=== PATIENT | female | born 1970 | race Caucasian/White ===

== ENCOUNTER 2017-09-14 14:12 | Emergency (ER) | payer SELFPAY ==
[2017-09-14] MEDS ORDERED: ONDANSETRON HCL INJ/PF 4 MG/2 ML SDV IV ONE (15:35)
[2017-09-14] MEDS ORDERED: KETOROLAC TROMETHAMINE INJ/PF 30 MG/1 ML SDV IV ONE (15:35)
--- NOTE | 2017-09-14 15:46 | ER Document Report ---
ED Medical Screen (RME) - General Chief Complaint: Flank Pain Stated Complaint: POSSIBLE KIDNEY STONES Time Seen by Provider: 09/14/17 15:34 Notes: Patient presents with approximately 1 hour ago having right-sided flank pain that radiates into her groin. She also has been having urinary hesitancy. Denies any recent fevers chills or illnesses. She states that she just finished her period several days ago. She states she has history of kidney stones in the past and this feels similar to previous attacks. I have greeted and performed a rapid initial assessment of this patient. A comprehensive ED assessment and evaluation of the patient, analysis of test results and completion of the medical decision making process will be conducted by additional ED providers. PHYSICAL EXAMINATION: GENERAL: Well-appearing, well-nourished and in no acute distress. HEAD: Atraumatic, normocephalic. EYES: Pupils equal round extraocular movements intact, conjunctiva are normal. ENT: Nares patent NECK: Normal range of motion LUNGS: No respiratory distress Musculoskeletal: Normal range of motion NEUROLOGICAL: Normal speech, normal gait. BACK: Mild R sided CVA TTP PSYCH: Normal mood, normal affect. SKIN: Warm, Dry, normal turgor, no rashes or lesions noted. TRAVEL OUTSIDE OF THE [place] IN LAST 30 DAYS: No - Related Data Allergies/Adverse Reactions: nitrofurantoin [From Macrodantin] Allergy (Verified 09/14/17 14:18) Sulfa (Sulfonamide Antibiotics) Allergy (Verified 09/14/17 14:18) morphine Adverse Reaction (Verified 09/14/17 14:18) Home Medications: lolo-estrin, klonopin as needed Past Medical History - Social History Chew tobacco use (# tins/day): No Frequency of alcohol use: None Drug Abuse: None Renal/ Medical History: Denies: Hx Peritoneal Dialysis Physical Exam - Vital signs Vitals: Temp Pulse Resp BP Pulse Ox 98.8 F 63 18 119/74 98 09/14/17 14:34 09/14/17 14:34 09/14/17 14:34 09/14/17 14:34 09/14/17 14:34 Course - Vital Signs Vital signs: Temp Pulse Resp BP Pulse Ox 98.8 F 63 18 119/74 98 09/14/17 14:34 09/14/17 14:34 09/14/17 14:34 09/14/17 14:34 09/14/17 14:34
[2017-09-14 16:48] LABS: ABSOLUTE BASOPHILS # (AUTO) 0.1 10^3/uL (0.0-0.2); ABSOLUTE EOSINOPHILS # (AUTO) 0.1 10^3/uL (0.0-0.6); ABSOLUTE LYMPHOCYTES (AUTO) 1.1 10^3/uL (0.5-4.7); ABSOLUTE MONOCYTES (AUTO) 0.7 10^3/uL (0.1-1.4); ABSOLUTE NEUT (AUTO) 10.5 10^3/uL (1.7-8.2); BASOPHILS % (AUTO) 0.6 % (0-2); EOSINOPHILS % (AUTO) 0.7 % (0-6); HEMATOCRIT 36.5 % (36.0-47.0); HEMOGLOBIN 11.9 g/dL (12.0-15.5); LYMPHOCYTES % (AUTO) 8.8 % (13-45); MEAN CORPUSCULAR HEMOGLOBIN 27.8 pg (27.0-33.4); MEAN CORPUSCULAR HGB CONC 32.5 g/dL (32.0-36.0); MEAN CORPUSCULAR VOLUME 86 fl (80-97); MONOCYTES % (AUTO) 5.9 % (3-13); PLATELET COUNT 250 10^3/uL (150-450); RED BLOOD COUNT 4.27 10^6/uL (3.72-5.28); RED CELL DISTRIBUTION WIDTH 13.9 % (11.5-14.0); TOTAL CELLS COUNTED % (AUTO) 100 %; WHITE BLOOD COUNT 12.5 10^3/uL (4.0-10.5)
[2017-09-14 17:01] LABS: ALANINE AMINOTRANSFERASE 44 U/L (9-52); ALBUMIN 4.2 g/dL (3.5-5.0); ALKALINE PHOSPHATASE 89 U/L (38-126); ANION GAP 14 (5-19); ASPARTATE AMINO TRANSFERASE 40 U/L (14-36); BILIRUBIN,DIRECT 0.3 mg/dL (0.0-0.4); BILIRUBIN,TOTAL 0.4 mg/dL (0.2-1.3); BLOOD UREA NITROGEN 10 mg/dL (7-20); CALCIUM 9.6 mg/dL (8.4-10.2); CARBON DIOXIDE 24 mmol/L (22-30); CHLORIDE 105 mmol/L (98-107); GLUCOSE 135 mg/dL (75-110); SODIUM 142.6 mmol/L (137-145); TOTAL PROTEIN 6.8 g/dL (6.3-8.2)
[2017-09-14 17:02] LABS: APPEARANCE,URINE CLOUDY; BILIRUBIN,URINE NEGATIVE (NEGATIVE); COLOR,URINE YELLOW; GLUCOSE, URINE NEGATIVE (NEGATIVE); KETONES,URINE TRACE mg/dL (NEGATIVE); LEUKOCYTE ESTERASE,URINE TRACE (NEGATIVE); NITRITE,URINE NEGATIVE (NEGATIVE); PROTEIN,URINE 30 mg/dL (NEGATIVE); URINE SPECIFIC GRAVITY 1.019; UROBILINOGEN,URINE NEGATIVE mg/dL (<2.0)
--- NOTE | 2017-09-14 18:09 | RADIOLOGY REPORT (SQ) ---
EXAM DESCRIPTION: CT LTD RENAL STONE PROTOCOL ON COMPLETED DATE/TIME: 09/14/2017 5:54 pm REASON FOR STUDY: r flank pain COMPARISON: None. TECHNIQUE: CT scan of the abdomen and pelvis performed without intravenous or oral contrast. Images reviewed with lung, soft tissue, and bone windows. Reconstructed coronal and sagittal MPR images revi ewed. All images stored on PACS. All CT scanners at this facility use dose modulation, iterative reconstruction, and/or weight based d osing when appropriate to reduce radiation dose to as low as reasonably achievable (ALARA). [facility]: Dose Right [facility]: CareDose [facility]: Dose Right [facility]: Teradose 4D [facility]: Smart [employer] RADIATION DOSE: CT Rad equipment meets quality standard of care and radiation dose reduction techniq ues were employed. CTDIvol: 13.2 mGy. DLP: 712 mGy-cm.mGy. LIMITATIONS: None. FINDINGS: LOWER CHEST: No significant findings. No nodules or infiltrates. NON-CONTRASTED LIVER, SPLEEN, ADRENALS: Well-defined low-density hepatic lesions are seen suggestive of cysts. The overall hepatic attenuation may be low. Spleen is normal. The adrenals are normal. PANCREAS: No masses. No peripancreatic inflammatory changes. GALLBLADDER: No identified stones by CT criteria. No inflammatory changes to suggest cholecystitis. RIGHT KIDNEY AND URETER: No suspicious masses. Assessment limited by lack of IV contrast. There is a 3 mm nonobstructing intrarenal calculus. There is moderate right hydronephrosis/ hydroureter seco ndary to a 5 mm calculus at the UVJ. LEFT KIDNEY AND URETER: No suspicious masses. Assessment limited by lack of IV contrast. A couple s mall lower calyceal nonobstructing calculi are present. No hydronephrosis or hydroureter. AORTA AND RETROPERITONEUM: No aneurysm. No retroperitoneal masses or adenopathy. BOWEL AND PERITONEAL CAVITY: No obvious masses or inflammatory changes. No free fluid. APPENDIX: Not identified. PELVIS, BLADDER, AND ABDOMINAL WALL:No abnormal masses. No free fluid. Bladder normal. BONES: No significant findings. OTHER: No other significant finding. IMPRESSION: 1. There is right hydronephrosis/ hydroureter secondary to a 5 mm calculus at the UVJ. 2. Small bilateral intrarenal calculi. 3. Likely fatty infiltration of the liver. There are 2 well-circumscribed hypodense lesions suggest misty of cysts. COMMENT: Quality ID # [id number]: Final reports with documentation of one or more dose reduction techniques (e.g., Automated exposure control, adjustment of the mA and/or kV according to patient size, use of iterative reconstruction technique) TECHNICAL DOCUMENTATION: JOB ID: [id number] [employer]- All Rights Reserved Reading location - IP/workstation name: [email or web address]
[2017-09-14] MEDS ORDERED: TAMSULOSIN HCL 0.4 MG CAP.SR.24H PO ONE (18:27)
[2017-09-14] MEDS ORDERED: CEFTRIAXONE INJ 1000 MG VIAL IV ONE (18:27)
--- NOTE | 2017-09-14 18:33 | ER Document Report ---
HPI - HPI Patient complains to provider of: Flank pain Onset: This afternoon Onset/Duration: Gradual Quality of pain: Sharp Pain Level: 4 Context: Patient presents complaining of right-sided flank pain that radiates around to right side of abdomen this afternoon. Patient states she had some urgency with urinary frequency. Patient reports nausea and vomiting 2 episodes. Patient denies any fever, diarrhea, or vaginal discharge. Patient states she has a history kidney stones and suspects the same today. Associated Symptoms: Nausea, Vomiting. denies: Nonproductive cough, Productive cough, Fever Exacerbated by: Denies Relieved by: Denies Similar symptoms previously: Yes Recently seen / treated by doctor: No - ROS ROS below otherwise negative: Yes Systems Reviewed and Negative: Yes All other systems reviewed and negative - CONSTITUTIONAL Constitutional: DENIES: Fever, Chills - CARDIOVASCULAR Cardiovascular: DENIES: Chest pain - RESPIRATORY Respiratory: DENIES: Trouble Breathing, Coughing - GASTROINTESTINAL Gastrointestinal: REPORTS: Abdominal Pain, Nausea, Patient vomiting. DENIES: Diarrhea - URINARY Urinary: REPORTS: Urgency, Frequency - MUSCULOSKELETAL Musculoskeletal: REPORTS: Back Pain - DERM Skin Color: Normal, [place] Skin Problems: None Past Medical History - General Information source: Patient - Social History Smoking Status: Never Smoker Chew tobacco use (# tins/day): No Frequency of alcohol use: None Drug Abuse: None Occupation: [employer] Lives with: Family Family History: Reviewed & Not Pertinent Patient has suicidal ideation: No Patient has homicidal ideation: No - Past Medical History Cardiac Medical History: Reports: Hx Hypertension Renal/ Medical History: Reports: Hx Kidney Stones. Denies: Hx Peritoneal Dialysis Past Surgical History: Reports: Other - Laparoscopy Vertical Provider Document - CONSTITUTIONAL Agree With Documented VS: Yes Exam Limitations: No Limitations General Appearance: WD/WN, No Apparent Distress - INFECTION CONTROL TRAVEL OUTSIDE OF THE [place] IN LAST 30 DAYS: No - HEENT HEENT: Atraumatic, Normocephalic - NECK Neck: Normal Inspection, Supple - RESPIRATORY Respiratory: Breath Sounds Normal, No Respiratory Distress - CARDIOVASCULAR Cardiovascular: Regular Rate, Regular Rhythm, No Murmur - GI/ABDOMEN Gastrointestinal: Abdomen Soft, Abdomen Non-Tender - BACK Back: CVA Tenderness-Right - mild - MUSCULOSKELETAL/EXTREMETIES Musculoskeletal/Extremeties: VANDANA SMITH - NEURO Level of Consciousness: Awake, Alert, Appropriate Motor/Sensory: No Motor Deficit - DERM Integumentary: Warm, Dry, No Rash Course - Re-evaluation Re-evalutation: 09/14/17 18:[address] Tong regarding patient presentation and diagnostic evaluation. Advises culturing the urine and having patient follow up in the office for recheck. Recommends giving patient a strainer. Does not suspect kidney infection at this time given the lack of fever and no nitrites on a urinalysis. Also advises giving patient Flomax prescription to go home. Patient's pain is tolerable at this time. Patient nontoxic in appearance, no concern for sepsis. - Vital Signs Vital signs: Temp Pulse Resp BP Pulse Ox 98.8 F 63 18 119/74 98 09/14/17 14:34 09/14/17 14:34 09/14/17 14:34 09/14/17 14:34 09/14/17 14:34 - Laboratory Result Diagrams: 09/14/17 16:25 09/14/17 16:25 Laboratory results interpreted by me: 09/14/17 09/14/17 09/14/17 16:25 16:25 16:25 WBC 12.5 H Hgb 11.9 L Seg Neutrophils % 84.0 H Lymphocytes % 8.8 L Absolute Neutrophils 10.5 H Glucose 135 H AST 40 H Urine Protein 30 H Urine Ketones TRACE H Urine Blood LARGE H Ur Leukocyte Esterase TRACE H Urine Ascorbic Acid 20 H 09/14/17 18:30 Labs- Entire Visit 09/14/17 09/14/17 09/14/17 16:25 16:25 16:25 WBC 12.5 H RBC 4.27 Hgb 11.9 L Hct 36.5 MCV 86 MCH 27.8 MCHC 32.5 RDW 13.9 Plt Count 250 Seg Neutrophils % 84.0 H Lymphocytes % 8.8 L Monocytes % 5.9 Eosinophils % 0.7 Basophils % 0.6 Absolute Neutrophils 10.5 H Absolute Lymphocytes 1.1 Absolute Monocytes 0.7 Absolute Eosinophils 0.1 Absolute Basophils 0.1 Sodium 142.6 Potassium 4.0 Chloride 105 Carbon Dioxide 24 Anion Gap 14 BUN 10 Creatinine 0.79 Est GFR ( Amer) > 60 Est GFR (Non-Af Amer) > 60 Glucose 135 H Calcium 9.6 Total Bilirubin 0.4 Direct Bilirubin 0.3 Neonat Total Bilirubin Not Reportable Neonat Direct Bilirubin Not Reportable Neonat Indirect Bili Not Reportable AST 40 H ALT 44 Alkaline Phosphatase 89 Total Protein 6.8 Albumin 4.2 Serum HCG, Qual NEGATIVE Urine Color Urine Appearance Urine pH Ur Specific [place] Urine Protein Urine Glucose (UA) Urine Ketones Urine Blood Urine Nitrite Urine Bilirubin Urine Urobilinogen Ur Leukocyte Esterase Urine WBC (Auto) Urine RBC (Auto) Urine Bacteria (Auto) Squamous Epi Cells Auto Urine Mucus (Auto) Urine Ascorbic Acid 09/14/17 16:25 WBC RBC Hgb Hct MCV MCH MCHC RDW Plt Count Seg Neutrophils % Lymphocytes % Monocytes % Eosinophils % Basophils % Absolute Neutrophils Absolute Lymphocytes Absolute Monocytes Absolute Eosinophils Absolute Basophils Sodium Potassium Chloride Carbon Dioxide Anion Gap BUN Creatinine Est GFR ( Amer) Est GFR (Non-Af Amer) Glucose Calcium Total Bilirubin Direct Bilirubin Neonat Total Bilirubin Neonat Direct Bilirubin Neonat Indirect Bili AST ALT Alkaline Phosphatase Total Protein Albumin Serum HCG, Qual Urine Color YELLOW Urine Appearance CLOUDY Urine pH 5.0 Ur Specific [place] 1.019 Urine Protein 30 H Urine Glucose (UA) NEGATIVE Urine Ketones TRACE H Urine Blood LARGE H Urine Nitrite NEGATIVE Urine Bilirubin NEGATIVE Urine Urobilinogen NEGATIVE Ur Leukocyte Esterase TRACE H Urine WBC (Auto) 28 Urine RBC (Auto) >182 Urine Bacteria (Auto) TRACE Squamous Epi Cells Auto 31 Urine Mucus (Auto) MANY Urine Ascorbic Acid 20 H - Diagnostic Test Radiology reviewed: Reports reviewed Discharge - Discharge Clinical Impression: Ureteral stone, Flank pain Condition: Stable Disposition: HOME, SELF-CARE Instructions: Antinausea Medication ([facility]), Cephalexin ([facility]), Flomax ([facility]), Kidney Stone ([facility]), Oral Narcotic Medication ([facility]), Rocephin ([facility]), Toradol Injection ([facility]) Additional Instructions: Return immediately for any new or worsening symptoms: Fever, increased pain, persistent vomiting or any new or worsening symptoms Followup with your primary care provider, call tomorrow to make a followup appointment Follow-up with urologist for further evaluation, call tomorrow for an appointment Strain your urine. Prescriptions: Cephalexin Monohydrate [Keflex 500 mg Capsule] 500 mg PO Q6H 7 Days capsule Oxycodone HCl/Acetaminophen [Percocet 5-325 mg Tablet] 1 - 2 tab PO ASDIR PRN # 15 tablet PRN Reason: Promethazine HCl [Phenergan 25 mg Tablet] 25 mg PO Q6H PRN #15 tablet PRN Reason: Tamsulosin HCl [Flomax 0.4 mg Cap.sr] 0.4 mg PO DAILY #7 cap.sr.24h Forms: Return to Work Referrals: [facility] [Provider Group] - Follow up as needed [facility] [Provider Group] - Follow up in 3-5 days
[2017-09-14 20:30] VITALS: BP 122/69
== END 2017-09-14 19:50 | disposition home or self-care (01) ==
LOC: ER 14:12
DX: N20.1 Calculus of ureter (principal); R11.2 Nausea with vomiting, unspecified; R10.9 Unspecified abdominal pain; R35.0 Frequency of micturition; I10 Essential (primary) hypertension; Z87.442 Personal history of urinary calculi
CPT/HCPCS: 99284; 96375; 96365; 36415; 87086; 84703; 85025; 80053; 81001; 76380; J1885; J0696; J2405

== ENCOUNTER 2018-01-20 03:13 | Observation (INO) | payer SELFPAY ==
[2018-01-20] MEDS ORDERED: ONDANSETRON HCL INJ/PF 4 MG/2 ML SDV IV ONE (04:13)
[2018-01-20] MEDS ORDERED: KETOROLAC TROMETHAMINE INJ/PF 30 MG/1 ML SDV IV ONE (04:13)
--- NOTE | 2018-01-20 04:13 | ER Document Report ---
ED GI/ - General Mode of Arrival: Ambulatory Information source: Patient TRAVEL OUTSIDE OF THE [place] IN LAST 30 DAYS: No <PAULINA BRUNER - Last Filed: 01/20/18 04:18> <MARGARET PERKINS - Last Filed: 01/20/18 05:44> - General Chief Complaint: Flank Pain Stated Complaint: FLANK PAIN Time Seen by Provider: 01/20/18 03:45 Notes: Patient is a 47 year old female that presents to the emergency department today with complaints of right back pain, right upper abdomen pain, nausea and vomiting. Patient states her symptoms began with upper abdominal tightness and the vomiting began shortly after. Patient states she thought her symptoms may have been related to anxiety so she took a clonazepam but this did not change her symptoms. Patient denies any diarrhea, recent travel, bad food, or sick contacts. (PAULINA BRUNER) - Related Data Allergies/Adverse Reactions: nitrofurantoin [From Macrodantin] Allergy (Verified 01/20/18 03:14) Sulfa (Sulfonamide Antibiotics) Allergy (Verified 01/20/18 03:14) morphine Adverse Reaction (Verified 01/20/18 03:14) Past Medical History - General Information source: Patient - Social History Smoking Status: Never Smoker Cigarette use (# per day): No Frequency of alcohol use: None Drug Abuse: None Lives with: Family Family History: Reviewed & Not Pertinent - Past Medical History Cardiac Medical History: Reports: Hx Hypertension Renal/ Medical History: Reports: Hx Kidney Stones Past Surgical History: Reports: Other - Laparoscopy <PAULINA BRUNER - Last Filed: 01/20/18 04:18> Review of Systems - Review of Systems Constitutional: No symptoms reported EENT: No symptoms reported Cardiovascular: See HPI, Chest pain Respiratory: No symptoms reported Gastrointestinal: See HPI, Abdominal pain, Nausea, Vomiting. denies: Diarrhea Genitourinary: No symptoms reported Female Genitourinary: No symptoms reported Musculoskeletal: See HPI, Back pain Skin: No symptoms reported Hematologic/Lymphatic: No symptoms reported Neurological/Psychological: See HPI, Anxiety -: Yes All other systems reviewed and negative <PAULINA BRUNER - Last Filed: 01/20/18 04:18> Physical Exam <PAULINA BRUNER - Last Filed: 01/20/18 04:18> - Abdominal Tenderness: Tender - RUQ <MARGARET PERKINS - Last Filed: 01/20/18 05:44> - Vital signs Vitals: Temp Pulse Resp BP Pulse Ox 98.1 F 58 L 20 131/84 H 100 01/20/18 03:22 01/20/18 03:22 01/20/18 03:22 01/20/18 03:22 01/20/18 03:22 - Notes Notes: Physical Exam: General: Alert, mild distress, vomiting in room, appears uncomfortable. HEENT: Normocephalic. Atraumatic. PERRL. Extraocular movements intact. Oropharynx clear. Dry mucous membranes. Neck: Supple. Non-tender. Respiratory: No respiratory distress. Right inferior rib cage tenderness with palpation. Clear and equal breath sounds bilaterally. Cardiovascular: Regular rate and rhythm. Abdominal: Normal Inspection. Non-tender. No distension. Normal Bowel Sounds. Back: Right mid-back tenderness with palpation. No deformity or step off. Extremities: Moves all four extremities. Upper extremities: Normal inspection. Normal ROM. Lower extremities: Normal inspection. No edema. Normal ROM. Neurological: Normal cognition. AAOx4. Normal speech. Psychological: Normal affect. Normal Mood. Skin: Warm. Dry. Normal color. (PAULINA BRUNER) Course <PAULINA BRUNER - Last Filed: 01/20/18 04:18> - Laboratory Result Diagrams: 01/20/18 04:23 01/20/18 04:23 <MARGARET PERKINS - Last Filed: 01/20/18 05:44> - Re-evaluation Re-evalutation: 01/20/18 05:41 Patient is a 47-year-old female who presents with right upper quadrant pain radiating into her right back and vomiting. Symptoms have been controlled with Zofran, Toradol, morphine, Reglan. Patient has been given fluids. Ultrasound showing pericholecystic fluid. Leukocytosis. Clinical exam and history consistent with cholecystitis. Patient has been made n.p.o. and Zosyn has been started. Surgicalist has been contacted for admission. Patient is agreeable to plan. (MARGARET PERKINS) - Vital Signs Vital signs: Temp Pulse Resp BP Pulse Ox 98.1 F 58 L 20 131/84 H 100 01/20/18 03:22 01/20/18 03:22 01/20/18 03:22 01/20/18 03:22 01/20/18 03:22 - Laboratory Laboratory results interpreted by me: 01/20/18 01/20/18 01/20/18 04:23 04:23 04:43 WBC 14.1 H RDW 15.0 H Seg Neutrophils % 83.1 H Lymphocytes % 10.7 L Absolute Neutrophils 11.7 H Carbon Dioxide 21 L Glucose 167 H Urine Ketones 80 H Discharge <PAULINA BRUNER - Last Filed: 01/20/18 04:18> - Discharge Admitting Provider: Surgicalist - [facility] Unit Admitted: Surgical Floor <MARGARET PERKINS - Last Filed: 01/20/18 05:44> - Discharge Clinical Impression: Cholecystitis Condition: Stable Disposition: ADMITTED INPATIENT Scribe Attestation: 01/20/18 05:44 I personally performed the services described in the documentation, reviewed and edited the documentation which was dictated to the scribe in my presence, and it accurately records my words and actions. (MARGARET PERKINS) Scribe Documentation - Scribe Written by Lana:: Lana Crowley, 01/20/2018 0435 acting as scribe for :: Ivelisse <PAULINA BRUNER - Last Filed: 01/20/18 04:18>
[2018-01-20 04:32] LABS: ABSOLUTE BASOPHILS # (AUTO) 0.1 10^3/uL (0.0-0.2); ABSOLUTE EOSINOPHILS # (AUTO) 0.1 10^3/uL (0.0-0.6); ABSOLUTE LYMPHOCYTES (AUTO) 1.5 10^3/uL (0.5-4.7); ABSOLUTE MONOCYTES (AUTO) 0.7 10^3/uL (0.1-1.4); ABSOLUTE NEUT (AUTO) 11.7 10^3/uL (1.7-8.2); BASOPHILS % (AUTO) 0.6 % (0-2); EOSINOPHILS % (AUTO) 0.6 % (0-6); HEMOGLOBIN 13.7 g/dL (12.0-15.5); LYMPHOCYTES % (AUTO) 10.7 % (13-45); MEAN CORPUSCULAR HEMOGLOBIN 28.8 pg (27.0-33.4); MEAN CORPUSCULAR HGB CONC 33.3 g/dL (32.0-36.0); MEAN CORPUSCULAR VOLUME 86 fl (80-97); PLATELET COUNT 231 10^3/uL (150-450); RED BLOOD COUNT 4.75 10^6/uL (3.72-5.28); SEGMENTED NEUTROPHILS % (AUTO) 83.1 % (42-78); TOTAL CELLS COUNTED % (AUTO) 100 %; WHITE BLOOD COUNT 14.1 10^3/uL (4.0-10.5)
[2018-01-20] MEDS ORDERED: NORMAL SALINE 1000 ML 1,000 ML IV ONE (04:34)
--- NOTE | 2018-01-20 04:47 | RADIOLOGY REPORT (SQ) ---
EXAM DESCRIPTION: XR CHEST 1 VIEW COMPLETED DATE/TME: 01/20/2018 00:00 CLINICAL HISTORY: Chest pain COMPARISON: None. FINDINGS: Single frontal view of the chest. The cardiomediastinal silhouette has normal size and contour. No consolidation, pneumothorax, or pleural effusion. No displaced rib fractures identified. Upper abdominal soft tissues are unremarkable. IMPRESSION: 1. No acute pulmonary process identified.
[2018-01-20 04:48] LABS: ALANINE AMINOTRANSFERASE 33 U/L (9-52); ALBUMIN 4.2 g/dL (3.5-5.0); ALKALINE PHOSPHATASE 91 U/L (38-126); ANION GAP 15 (5-19); ASPARTATE AMINO TRANSFERASE 23 U/L (14-36); BILIRUBIN,DIRECT 0.3 mg/dL (0.0-0.4); BILIRUBIN,TOTAL 0.6 mg/dL (0.2-1.3); BLOOD UREA NITROGEN 15 mg/dL (7-20); CALCIUM 9.8 mg/dL (8.4-10.2); CARBON DIOXIDE 21 mmol/L (22-30); CHLORIDE 105 mmol/L (98-107); GLUCOSE 167 mg/dL (75-110); LIPASE 78.3 U/L (23-300); SODIUM 141.1 mmol/L (137-145); TOTAL PROTEIN 7.4 g/dL (6.3-8.2)
[2018-01-20 05:13] LABS: APPEARANCE,URINE SLIGHTLY-CLOUDY; BILIRUBIN,URINE NEGATIVE (NEGATIVE); COLOR,URINE YELLOW; GLUCOSE, URINE NEGATIVE (NEGATIVE); KETONES,URINE 80 mg/dL (NEGATIVE); LEUKOCYTE ESTERASE,URINE NEGATIVE (NEGATIVE); NITRITE,URINE NEGATIVE (NEGATIVE); PROTEIN,URINE NEGATIVE (NEGATIVE); URINE SPECIFIC GRAVITY 1.018; UROBILINOGEN,URINE NEGATIVE mg/dL (<2.0)
[2018-01-20] MEDS ORDERED: FENTANYL CITRATE INJ/PF 100 MCG/2 ML AMPUL IV ONE (05:30)
[2018-01-20] MEDS ORDERED: METOCLOPRAMIDE HCL INJ/PF 10 MG/2 ML SDV IV ONE (05:30)
[2018-01-20] MEDS ORDERED: PIPERACILLIN/TAZOBACTAM 3.375 GM VIAL IV ONE (05:31)
[2018-01-20] MEDS ORDERED: RINGERS SOLUTION,LACTATED 1,000 ML IV ONE (05:31)
--- NOTE | 2018-01-20 05:39 | RADIOLOGY REPORT (SQ) ---
EXAM DESCRIPTION: US ABDOMEN LIMITED COMPLETED DATE/TME: 01/20/2018 04:49 CLINICAL HISTORY: RUQ pain, N/V COMPARISON: None. TECHNIQUE: Real-time sonographic images of the right upper abdomen were obtained using a curved multihertz transducer. FINDINGS: Pancreas: The visualized portions of the pancreas are unremarkable. Vascular: The visualized portions of the aorta and IVC are unremarkable. Liver: The liver has normal contour and increased echogenicity. Multiple simple appearing cysts in the liver identified. Hepatopedal flow in the portal vein. Findings confirmed with color and spectral Doppler imaging. The common bile duct measures 0.4 cm. Gallbladder: Small amount of pericholecystic fluid. Normal gallbladder wall thickness. Negative reported sonographic Snow sign. Echogenic structures with posterior shadowing of the gallbladder neck. Right Kidney: The right kidney measures 12.2 cm in length. No hydronephrosis, solid renal mass, or shadowing calculi. IMPRESSION: 1. Cholelithiasis with pericholecystic fluid. This could be seen with but is not diagnostic for acute cholecystitis. 2. Hepatic steatosis.
[2018-01-20] MEDS ORDERED: ONDANSETRON HCL INJ/PF 4 MG/2 ML SDV IV PRN (06:09)
[2018-01-20] MEDS ORDERED: KETOROLAC TROMETHAMINE INJ/PF 30 MG/1 ML SDV IV PRN (06:09)
[2018-01-20] MEDS ORDERED: RINGERS SOLUTION,LACTATED 1,000 ML IV PRN (06:17)
--- NOTE | 2018-01-20 06:17 | PDOC H&P ---
History of Present Illness Admission Date/PCP: 01/20/18 05:52 Patient complains of: Abdominal pain nausea anorexia History of Present Illness: GINNY VALENTINE is a 47 year old female Who presents emergency department via ground rescue complaining of abdominal pain acute onset approximately midnight, associated with bloating and nausea. Patient had similar episode recently 1 month ago right sided felt secondary to kidney stones which she had actually passed back in August 2017. Symptoms did not resolve. Last bowel movement yesterday, normal. Patient evaluated in the emergency department where she is found to have right upper quadrant tenderness , leukocytosis, and CT scan findings consistent with cholelithiasis and pericholecystic fluid. Surgery was consulted and she was advised admission. There is a strong family history of gallbladder disease with stones in her father. Patient had a colonoscopy in 1993 for abdominal pain, reportedly negative. Patient was evaluated by the surgery team, and laparoscopic cholecystectomy was recommended this admission. Past Medical History Past Medical History: Nephrolithiasis, abdominal pain Cardiac Medical History: Reports: Hypertension Past Surgical History Past Surgical History: Previous colonoscopy, laparoscopic lysis of adhesions 1993, kidney stones passed uneventfully August 2017 Past Surgical History: Reports: Other - Laparoscopy Social History Lives with: Family Smoking Status: Never Smoker Frequency of Alcohol Use: Occasional Hx Recreational Drug Use: No Hx Prescription Drug Abuse: No Family History Family History: Reviewed & Not Pertinent Parental Family History Reviewed: Yes Children Family History Reviewed: Yes Sibling(s) Family History Reviewed.: Yes Medication/Allergy Home Medications: Cephalexin Monohydrate [Keflex 500 mg Capsule] 500 mg PO Q6H 7 Days capsule Oxycodone HCl/Acetaminophen [Percocet 5-325 mg Tablet] 1 - 2 tab PO ASDIR PRN # 15 tablet 09/14/17 Promethazine HCl [Phenergan 25 mg Tablet] 25 mg PO Q6H PRN #15 tablet 09/14/17 Tamsulosin HCl [Flomax 0.4 mg Cap.sr] 0.4 mg PO DAILY #7 cap.sr.24h 09/14/17 Allergies/Adverse Reactions: nitrofurantoin [From Macrodantin] Allergy (Verified 01/20/18 03:14) Sulfa (Sulfonamide Antibiotics) Allergy (Verified 01/20/18 03:14) morphine Adverse Reaction (Verified 01/20/18 03:14) Review of Systems Constitutional: PRESENT: other - Patient reports intentional weight loss.. ABSENT: chills, fever(s), headache(s), weight gain, weight loss Eyes: ABSENT: visual disturbances Ears: ABSENT: hearing changes Cardiovascular: ABSENT: chest pain, dyspnea on exertion, edema, orthropnea, palpitations Respiratory: ABSENT: cough, hemoptysis Gastrointestinal: PRESENT: as per HPI Genitourinary: ABSENT: dysuria, hematuria Musculoskeletal: ABSENT: joint swelling Integumentary: ABSENT: rash, wounds Neurological: ABSENT: abnormal gait, abnormal speech, confusion, dizziness, focal weakness, syncope Endocrine: ABSENT: cold intolerance, heat intolerance, polydipsia, polyuria Hematologic/Lymphatic: ABSENT: easy bleeding, easy bruising Physical Exam Vital Signs: Temp Pulse Resp BP Pulse Ox 98.1 F 58 L 20 131/84 H 100 01/20/18 03:22 01/20/18 03:22 01/20/18 03:22 01/20/18 03:22 01/20/18 03:22 Intake & Output 01/18/18 01/19/18 01/20/18 06:59 06:59 06:59 Intake Total 517 Balance 517 General appearance: PRESENT: no acute distress, other - Patient did receive anti -medic recently Head exam: PRESENT: normocephalic Eye exam: PRESENT: EOMI Neck exam: PRESENT: full ROM Respiratory exam: PRESENT: clear to auscultation katherine Cardiovascular exam: PRESENT: RRR Pulses: PRESENT: normal carotid pulses, normal radial pulses, normal femoral pulses, normal dorsalis pedis pul GI/Abdominal exam: PRESENT: other - Abdomen tender right upper quadrant with guarding to deep palpation; umbilical hardware; scars consistent with previous surgery Rectal exam: PRESENT: deferred Extremities exam: PRESENT: full ROM Musculoskeletal exam: PRESENT: full ROM Neurological exam: PRESENT: alert, awake, oriented to person, oriented to place , oriented to time, oriented to situation Psychiatric exam: PRESENT: appropriate affect Results Impressions: Chest X-Ray 01/20/18 00:00 IMPRESSION: 1. No acute pulmonary process identified. Abdomen Ultrasound 01/20/18 04:49 IMPRESSION: 1. Cholelithiasis with pericholecystic fluid. This could be seen with but is not diagnostic for acute cholecystitis. 2. Hepatic steatosis. Assessment & Plan - Diagnosis (1) Cholecystitis Is this a current diagnosis for this admission?: Yes Plan: Impression acute cholecystitis with cholelithiasis and otherwise healthy white female; recommend 1. Admission to the surgical service, IV fluids, intravenous antibiotics 2. Set patient up for interval laparoscopic, possible open cholecystectomy, Dr. Carballo, surgical list for January 19. I have discussed the provisional mechanics of the operation and expected outcome. These will be reviewed by Dr. Carballo. (2) Family history of cholecystitis Is this a current diagnosis for this admission?: Yes Plan: Impression: Acute cholecystitis with cholelithiasis and otherwise healthy white female (3) History of nephrolithiasis Is this a current diagnosis for this admission?: Yes (4) Anxiety disorder Qualifiers: Anxiety disorder type: generalized anxiety disorder Qualified Code(s): F41.1 - Generalized anxiety disorder Is this a current diagnosis for this admission?: Yes - Time Time Spent: 50 to 70 Minutes Critical Time spent with patient: 15-24 minutes Medications reviewed and adjusted accordingly: Yes Anticipated discharge: Home - Inpatient Certification Based on my medical assessment, after consideration of the patient's comorbidities, presenting symptoms, or acuity I expect that the services needed warrant INPATIENT care.: Yes I certify that my determination is in accordance with my understanding of Medicare's requirements for reasonable and necessary INPATIENT services [42 CFR 412.3e].: Yes Medical Necessity: Need For IV Fluids, Need for Pain Control, Need for IV Antibiotics, Need for Surgery
[2018-01-20] MEDS ORDERED: CEFAZOLIN 2 GM/D5W RTU 2 GM/50 ML RTUPB IV ONE (06:45)
[2018-01-20] MEDS ORDERED: MIDAZOLAM 2 MG/2 ML INJ ONE (07:50)
[2018-01-20] MEDS ORDERED: FENTANYL CITRATE INJ/PF 100 MCG/2 ML AMPUL ONE (07:50)
[2018-01-20] MEDS ORDERED: ONDANSETRON HCL INJ/PF 4 MG/2 ML SDV ONE (07:50)
[2018-01-20] MEDS ORDERED: HYDROMORPHONE HCL INJ/PF 2 MG/ML AMPULE ONE (07:50)
[2018-01-20] MEDS ORDERED: PROPOFOL INJ 200 MG/20 ML VIAL IV ONE (07:50)
[2018-01-20] MEDS ORDERED: DEXAMETHASONE SOD PHOSPHATE INJ 4 MG/1 ML VIAL ONE (07:50)
[2018-01-20] MEDS ORDERED: ACETAMINOPHEN 1,000 MG/100 ML RTUPB IV ONE (07:51)
[2018-01-20] MEDS ORDERED: BUPIVACAINE HCL 0.5%-EPI 1:200000 INJ/PF 30 ML VIAL ONE (08:00)
--- NOTE | 2018-01-20 09:29 | EKG REPORT ---
SEVERITY:- BORDERLINE ECG - SINUS RHYTHM BORDERLINE T ABNORMALITIES, INFERIOR LEADS : Confirmed by: Luis Luciano 20-Jan-2018 09:28:39
[2018-01-20] MEDS ORDERED: SUCCINYLCHOLINE CHLORIDE INJ 200 MG/10 ML VIAL ONE (10:07)
[2018-01-20] MEDS ORDERED: NEOSTIGMINE METHYLSULFATE 10 MG/10 ML VIAL ONE (10:07)
[2018-01-20] MEDS ORDERED: ROCURONIUM BROMIDE INJ 50 MG/5 ML VIAL IV ONE (10:07)
[2018-01-20] MEDS ORDERED: GLYCOPYRROLATE 1 MG/5 ML SYRINGE ONE (10:07)
[2018-01-20] MEDS ORDERED: DIPHENHYDRAMINE HCL 50 MG/ML VIAL IV PRN (10:47)
[2018-01-20] MEDS ORDERED: MEPERIDINE HCL/PF INJ 25 MG/1 ML DISP.SYRIN IV PRN (10:47)
[2018-01-20] MEDS ORDERED: FENTANYL CITRATE INJ/PF 100 MCG/2 ML AMPUL IV PRN ×3 (10:47)
[2018-01-20] MEDS ORDERED: PROMETHAZINE HCL INJ 25 MG/1 ML VIAL IV PRN (10:47)
--- NOTE | 2018-01-20 11:41 | Operative Report ---
Nonrecallable Operative Report DATE OF SURGERY: 01/20/18 PREOPERATIVE DIAGNOSIS: cholelithiasis, symptomatic;. acute cholecystitis POSTOPERATIVE DIAGNOSIS: same OPERATION: laparoscopic cholecystectomy SURGEON: RJ LUJAN ANESTHESIA: GA - plus 15 mL 1% lidocaine with epinephrine TISSUE REMOVED OR ALTERED: gallbladder COMPLICATIONS: none ESTIMATED BLOOD LOSS: < 5 mL INTRAOPERATIVE FINDINGS: choelithiasis, inflamed gallbladder wall PROCEDURE: see dictation
[2018-01-20] MEDS: ACETAMINOPHEN INJ/PF 1000 MG/100 ML SDV IV SCH ×3 (12:17→23:45)
[2018-01-20] MEDS: CEFAZOLIN 2 GM/D5W RTU 2 GM/50 ML RTUPB IV SCH ×2 (14:53→21:52)
[2018-01-20] MEDS: NORMAL SALINE 1000 ML 1,000 ML IV PRN (14:54)
--- NOTE | 2018-01-20 15:51 | OPERATIVE REPORT E ---
Operative Report NAME: GINNY VALENTINE : 1970 AGE: 47Y DATE OF SURGERY: 01/20/2018 ROOM: 207 PREOPERATIVE DIAGNOSIS: Cholelithiasis and cholecystitis acute. POSTOPERATIVE DIAGNOSIS: Cholelithiasis and cholecystitis acute. PROCEDURE: Laparoscopic cholecystectomy. SURGEON: RJ LUJAN M.D. PICKLING DRUM OPERATOR: None. ESTIMATED BLOOD LOSS: Minimal, less than 5 mL. COMPLICATIONS: None. ANESTHESIA: General plus 4% lidocaine with epinephrine approximately 15 mL. DRAINS: None. URINE OUTPUT: Not monitored. FLUIDS: Not available. INDICATION AND FINDINGS: A 47-year-old female admitted yesterday for right upper quadrant pain and intense nausea, found to have cholelithiasis. No true inflammatory changes of the gallbladder. The patient is taken to surgery today to undergo a laparoscopic cholecystectomy, possible open, plus intraoperative cholangiogram. Procedure risks, benefits, and complications including the possibility of injury to the common bile duct and/or bleeding from the liver, which may require repair in a tertiary center has been discussed with the patient. She understands all of the above and desires to proceed. DESCRIPTION OF PROCEDURE: Procedure was done in the operating room. Patient was placed in supine position. General anesthesia was induced by endotracheal intubation. Abdomen was prepped and draped in the usual fashion. Incision was made, one just above the umbilicus, a single in the epigastrium and two in the right lateral quadrant of the abdomen. Through the umbilical incision, a 5 mm port was inserted through Optiview adapter and 5 mm scope and CO2 pneumoperitoneum was then established. The 12 mm port and the two 5 mm ports were placed through the epigastrium and right lower quadrant of the abdomen, respectively. The patient was placed in a reverse Trendelenburg position with the right side elevated. The gallbladder and fundus were found to be filled with stones; therefore, a cholecystostomy needle was inserted and about less than 10 mm dark bile was aspirated. This was sent for aerobic and anaerobic culture and Gram stain. The gallbladder was then grasped at the fundus, elevated, retroflexed. The gallbladder neck was grasped and pulled anteriorly towards the patient's right with exposure of triangle of Calot. The critical view of safety was obtained by dividing the peritoneal attachments of the gallbladder neck medially and laterally, and a space was developed posterior to the gallbladder neck. The cystic duct was gently dissected with hook cautery. After this was accomplished, the cystic duct was doubly clipped proximally and divided with scissors. The gallbladder was then dissected easily from the liver bed using hook cautery at higher settings. The gallbladder was extracted from the peritoneal cavity with an Endobag. The CO2 pneumoperitoneum was re-established. The liver bed was examined and a very small amount of oozing was noted. This was controlled with cautery. The peritoneal cavity was then fully irrigated with 1 L of normal saline, which was aspirated and found to be clear. Under direct visualization using a fascial closure device, a hpglcv-or-dmvls 0 Vicryl was placed to close the epigastric fascial defect and left untied. At this point, all instruments were removed. The ports were removed. The CO2 pneumoperitoneum was released. The fascial defect of the epigastrium was closed with the previously placed 0-Vicryl suture. All skin incisions were then closed with a subcuticular 4-0 Monocryl suture and Dermabond. The patient tolerated the procedure well, was extubated, and transferred to the recovery room in satisfactory condition. DICTATING PHYSICIAN: RJ LUJAN M.D. [id number] PHY#: [id number] ID: [id number] JOB#: [id number] ACCT: [id number] cc:RJ LUJAN M.D. > MTDD
[2018-01-21] MEDS: NORMAL SALINE 1000 ML 1,000 ML IV PRN (01:18)
[2018-01-21 04:09] LABS: ABSOLUTE LYMPHOCYTES (AUTO) 1.5 10^3/uL (0.5-4.7); ABSOLUTE MONOCYTES (AUTO) 1.2 10^3/uL (0.1-1.4); ABSOLUTE NEUT (AUTO) 9.5 10^3/uL (1.7-8.2); BASOPHILS % (AUTO) 0.2 % (0-2); EOSINOPHILS % (AUTO) 0.2 % (0-6); HEMATOCRIT 35.5 % (36.0-47.0); HEMOGLOBIN 11.7 g/dL (12.0-15.5); LYMPHOCYTES % (AUTO) 12.3 % (13-45); MEAN CORPUSCULAR HEMOGLOBIN 28.9 pg (27.0-33.4); MEAN CORPUSCULAR VOLUME 88 fl (80-97); MONOCYTES % (AUTO) 9.6 % (3-13); PLATELET COUNT 201 10^3/uL (150-450); RED BLOOD COUNT 4.06 10^6/uL (3.72-5.28); SEGMENTED NEUTROPHILS % (AUTO) 77.7 % (42-78); TOTAL CELLS COUNTED % (AUTO) 100 %; WHITE BLOOD COUNT 12.2 10^3/uL (4.0-10.5)
[2018-01-21 04:38] LABS: ALANINE AMINOTRANSFERASE 38 U/L (9-52); ALBUMIN 3.2 g/dL (3.5-5.0); ALKALINE PHOSPHATASE 58 U/L (38-126); ANION GAP 10 (5-19); ASPARTATE AMINO TRANSFERASE 36 U/L (14-36); BILIRUBIN,DIRECT 0.2 mg/dL (0.0-0.4); BILIRUBIN,TOTAL 0.4 mg/dL (0.2-1.3); BLOOD UREA NITROGEN 7 mg/dL (7-20); CALCIUM 8.5 mg/dL (8.4-10.2); CARBON DIOXIDE 21 mmol/L (22-30); CHLORIDE 113 mmol/L (98-107); GLUCOSE 137 mg/dL (75-110); POTASSIUM 3.8 mmol/L (3.6-5.0); SODIUM 143.7 mmol/L (137-145); TOTAL PROTEIN 5.9 g/dL (6.3-8.2)
[2018-01-21] MEDS: CEFAZOLIN 2 GM/D5W RTU 2 GM/50 ML RTUPB IV SCH (05:31)
[2018-01-21] MEDS ORDERED: ENOXAPARIN SODIUM INJ 40 MG/0.4 ML DISP.SYRIN SUBCUT SCH (06:00)
[2018-01-21] MEDS: ACETAMINOPHEN INJ/PF 1000 MG/100 ML SDV IV SCH (07:15)
--- NOTE | 2018-01-21 10:29 | PDOC PROGRESS REPORT ---
Subjective Progress Note for:: 01/21/18 Subjective:: patient comfortable, no c/o, tolerating po well Reason For Visit: SYMPTOMATIC CHOLELITHIASIS WITH CHOLECYSTITIS Physical Exam Vital Signs: Temp Pulse Resp BP Pulse Ox 98.7 F 65 18 125/72 95 01/21/18 07:40 01/21/18 07:40 01/21/18 07:40 01/21/18 07:40 01/21/18 07:40 Intake & Output 01/20/18 01/21/18 01/22/18 06:59 06:59 06:59 Intake Total 517 3890 770 Output Total 1005 Balance 517 2885 770 Weight 81.8 kg General appearance: PRESENT: no acute distress Respiratory exam: PRESENT: clear to auscultation katherine Cardiovascular exam: PRESENT: RRR GI/Abdominal exam: PRESENT: hypoactive bowel sounds, soft, other - incisions c/d /i Results Laboratory Results: 01/21/18 03:58 01/21/18 03:58 01/21/18 01/21/18 03:58 03:58 WBC 12.2 H RBC 4.06 Hgb 11.7 L Hct 35.5 L MCV 88 MCH 28.9 MCHC 33.0 RDW 15.0 H Plt Count 201 Seg Neutrophils % 77.7 Lymphocytes % 12.3 L Monocytes % 9.6 Eosinophils % 0.2 Basophils % 0.2 Absolute Neutrophils 9.5 H Absolute Lymphocytes 1.5 Absolute Monocytes 1.2 Absolute Eosinophils 0.0 Absolute Basophils 0.0 Sodium 143.7 Potassium 3.8 Chloride 113 H Carbon Dioxide 21 L Anion Gap 10 BUN 7 Creatinine 0.61 Est GFR ( Amer) > 60 Est GFR (Non-Af Amer) > 60 Glucose 137 H Calcium 8.5 Total Bilirubin 0.4 AST 36 ALT 38 Alkaline Phosphatase 58 Total Protein 5.9 L Albumin 3.2 L Impressions: Chest X-Ray 01/20/18 00:00 IMPRESSION: 1. No acute pulmonary process identified. Abdomen Ultrasound 01/20/18 04:49 IMPRESSION: 1. Cholelithiasis with pericholecystic fluid. This could be seen with but is not diagnostic for acute cholecystitis. 2. Hepatic steatosis. Assessment & Plan - Diagnosis (1) Cholelithiasis and acute cholecystitis without obstruction Is this a current diagnosis for this admission?: Yes - Plan Summary Plan Summary: A/ POD #1 after lap grzegorz for acute cholecystitis with cholelithiasis VSS, AF Improved leukocytosis down to 12K LFT rogelio PO tolerated P/ Home today Resume diet, meds Resume all activities without restrictions No wound care needed Shower only x 2 weeks, then can bathe F/u with Surgery office (KA[facility] Herron) in 2 weeks Tylenol /Aleve as needed for pain Ice pack to painful wounds as needed Miralax / Colace OTC as needed fo constipation
[2018-01-21 10:53] VITALS: BP 131/84
--- NOTE | 2018-01-22 06:56 | DISCHARGE SUMMARY E ---
Discharge Summary NAME: GINNY VALENTINE : 1970 AGE: 47Y ADMITTED: 01/20/2018 DISCHARGED: 01/21/2018 FINAL DIAGNOSIS: ACUTE CHOLECYSTITIS WITH CHOLELITHIASIS. PROCEDURE: On 01/20/2018, the patient underwent a laparoscopic cholecystectomy. COMPLICATIONS: None. HOSPITAL COURSE: This is a healthy 47-year-old female who presented to the hospital with right upper quadrant pain and was found to have acute cholelithiasis on ultrasound. The patient was taken to surgery on same day where she was found to have acute cholecystitis, mild, with cholelithiasis. The patient underwent an uneventful laparoscopic cholecystectomy. The postoperative course are unremarkable. Vital signs remains stable. The patient overall did well, ambulating., and tolerating the diet well. Her white cell count improved from 14,000 to 12,000. DISCHARGE ORDERS: The patient is discharged home on January 21. She was given a follow-up appointment in the office with a PA, Janina Jaime, in 2 weeks. Resume home medications and all activities without restriction. The patient will shower for 2 weeks and then she can bathe with no wound care needed. MiraLax and Colace as needed for constipation [id number], Tylenol and Aleve as needed [id number] for pain. DICTATING PHYSICIAN: RJ LUJAN M.D. [id number] PHY#: [id number] ID: [id number] JOB#: [id number] ACCT: [id number] cc:RJ LUJAN M.D. [facility]
== END 2018-01-21 12:35 | disposition home or self-care (01) ==
LOC: ER 03:13 → INTOOBSV 05:52 → EH 05:52 → 2N 07:45
PROVIDERS: ATTEND Surgery
PROC: 0FT44ZZ Resection of Gallbladder, Percutaneous Endoscopic Approach (ICD-10-PCS; principal; 2018-01-20 10:30)
DX: K80.12 Calculus of gallbladder with acute and chronic cholecystitis without obstruction (principal); F41.1 Generalized anxiety disorder; Z87.442 Personal history of urinary calculi; Z83.79 Family history of other diseases of the digestive system; Z98.890 Other specified postprocedural states
CPT/HCPCS: 93005; 99285; 96361; 96374; 96375; 36415 ×2; 87205; 87070; 83690; 85025 ×2; 81025; 87075; 80053 ×2; 81001; 84484; 88304 ×2; 71045; 76705; 93010; 47562; J2250; J3490 ×3; J1100; J3010; J1885; J2765; J1650; J1170; J0330; J2405; J7030 ×2; J7120; J2704; J0690 ×2; J2543; J0131; 790; G0378

== ENCOUNTER 2019-10-01 19:47 | Emergency (ER) | payer OTHER ==
[2019-10-01 19:53] VITALS: BP 146/84
[2019-10-01] MEDS ORDERED: IBUPROFEN 800 MG TABLET PO ONE (19:59)
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
--- NOTE | 2019-10-01 20:48 | RADIOLOGY REPORT (SQ) ---
EXAM DESCRIPTION: XR KNEE 4 OR MORE VIEWS COMPLETED DATE/TME: 10/01/2019 19:59 CLINICAL HISTORY: 48 years, Female, pain, injury, swelling, medial knee COMPARISON: None. NUMBER OF VIEWS: TECHNIQUE: LIMITATIONS: None. FINDINGS: 4 views of the left knee were obtained. No fracture or dislocation. No evidence of knee joint effusion. There are mild degenerative changes. Mineralization of bone appears normal. IMPRESSION: No fracture or dislocation. Mild degenerative changes. copyright 2010 [employer]- All Rights Reserved
== END 2019-10-01 21:10 | disposition home or self-care (01) ==
LOC: ER 19:47
DX: S80.02XA Contusion of left knee, initial encounter (principal); V49.40XA Driver injured in collision with unspecified motor vehicles in traffic accident, initial encounter; I10 Essential (primary) hypertension; Z88.2 Allergy status to sulfonamides; Z88.6 Allergy status to analgesic agent; Z90.49 Acquired absence of other specified parts of digestive tract
CPT/HCPCS: 99283